=== PATIENT | male | born 1965 | race African-American/Black ===

== ENCOUNTER 2025-05-05 02:37 | Emergency (ER) | payer OTHER, MEDICAID ==
[~2025-05-05] VITALS: Ht 172.7 cm; Wt 79.4 kg
[2025-05-05] MEDS: IPRATROPIUM BROM 0.5 MG/2.5ML INH SOL NEB ONE ×2 (03:29→06:36)
[2025-05-05] MEDS: BUDESONIDE (INHALATION) 0.5 MG/2 ML NEB NEB ONE ×2 (03:29→06:35)
[2025-05-05] MEDS: LEVALBUTEROL HCL 1.25 MG/3 ML NEB NEB ONE ×2 (03:29→06:35)
[2025-05-05] MEDS ORDERED: methylPREDNISolone SOD SUCC 125 MG/2 ML VL IV ONE (03:30)
[2025-05-05] MEDS ORDERED: AZITHROMYCIN 500MG/ 250ML 250 ML IV ONE (03:30)
[2025-05-05 03:44] LABS: Hematocrit 44.8 % (41.0-53.0); Hemoglobin 14.9 g/dL (13.5-17.5); Mean Corpuscular Hemoglobin 28.3 pg (28.0-32.0); Mean Corpuscular Volume 85.5 fL (80.0-100.0); Nucleated Red Blood Cells % 0.0 %
--- NOTE | 2025-05-05 03:50 | ED.PDOC ---
SOB-HPI HPI Comments 59-year-old male with COPD on albuterol inhaler presented to the ER with a chief complaint of shortness of breaths for the past 2 months. Patient reports gradual worsening shortness of breaths for the past couple of months, takes only albuterol inhaler, which did not relieve his shortness of breaths. Associated symptoms include productive cough with clear to white phlegm. Reports wheezing. Denies chest pain/abdominal pain/urinary symptoms. Reports chills but denies fever at this time. Past medical history COPD Home medications: Albuterol Social history: Quit smoking for days ago, smoked for his lifetime-half a pack a day. Drinks socially Patient seen and examined in ER. Bilateral coarse crackles, wheezing heard, respiratory rate Twenty per minute. Chief Complaint: Shortness of Breath Time Seen by MD: 02:45 Reviewed notes: Nurses Notes Information Source: Patient Mode of Arrival: Ambulatory Past Medical History Past Medical History (Other): COPD Constitutional: reports: chills EENTM: denies: blurred vision, double vision, ear bleeding, ear discharge, ear drainage, ear pain, ear ringing, eye pain, eye redness, hearing loss, mouth pain, mouth swelling, nasal discharge, nose bleeding, nose congestion, nose pain, photophobia, tearing, throat pain, throat swelling, voice changes, others Respiratory: reports: cough, orthopnea, SOB at rest, SOB with excertion, wheezing Cardiovascular: denies: chest pain, dizzy spells, diaphoresis, Dyspnea on exertion, edema, irregular heart beat, left arm pain, lightheadedness, palpit ations, PND, syncope, others Gastrointestinal: denies: abdomen distended, abdominal pain, blood streaked b owels, constipated, diarrhea, dysphagia, difficulty swallowing, hematemesis, melena, nausea, poor appetite, poor fluid intake, rectal bleeding, rectal pain, vomiting, others Genitourinary: denies: burning, dysuria, flank pain, frequency, hematuria, incontinence, penile discharge, penile sore, pain, testicle pain, testicle swelling, urgency, others Neurological: denies: dizziness, fainting, headache, left sided numbness, left sided weakness, numbness, paresthesia, pre-existing deficit, right sided numbness, right sided weakness, seizure, speech problems, tingling, tremors, weakness, others Musculoskeletal: denies: back pain, gout, joint pain, joint swelling, muscle pain, muscle stiffness, neck pain, others Integumetry: denies: bruises, change in color, change in hair/nails, dryness, laceration, lesions, lumps, rash, wounds, others Allergic/Immunocompromised: denies: Difficulty Healing, Frequent Infections, Hives, Itching, others Hematologic/Lymphatic: denies: anemia, blood clots, easy bleeding, easy bruisi ng, swollen glands, others Endocrine: denies: excessive hunger, excessive sweating, excessive thirst, exce ssive urination, flushing, intolerance to cold, intolerance to heat, unexplained weight gain, unexplained weight loss, others Psychiatric: denies: anxiety, bipolar disorder, depression, hopeless, panic disorder, schizophrenia, sleepless, suicidal, others Physical Exam General Appearance: Mild Distress HEENT: NOT DONE Neck: NOT DONE Respiratory: Decreased Breath Sounds, Expiration, No Accessory Muscle Use, Respiratory Distress, Wheezing Cardiovascular: No Edema, No Murmur, Regular Rate/Rhythm Breast Exam: Deferred Gastrointestinal: No Organomegaly, Non Tender, No Pulsatile Mass, Normal Bowel Sounds, Soft Genitalia: Deferred Pelvic: Deferred Rectal: Deferred Extremities: No calf tenderness, Normal capillary refill, Normal inspection, Normal range of motion, Non-tender, No pedal edema Neurologic: Alert, NOT DONE Cerebellar Function: NOT DONE Reflexes: NOT DONE Skin: Dry Lymphatic: NOT DONE Was a procedure done? Was a procedure done?: No Differential Dx Differential Diagnosis: Bronchitis, CHF, COPD, Pneumonia, Respiratory Distress, Sinusitis, Pharyngitis, URI X-Ray, Labs, Meds, VS Vital Signs Date Time Temp Pulse Resp B/P (MAP) Pulse Ox O2 Delivery O2 Flow Rate FiO2 05/05/25 03:30 20 99 Nasal Cannula* 2 28 05/05/25 02:44 97.9 97 19 152/103 95 97.9 Lab Test 05/05/25 03:27 Range/Units White Blood Count Pending Red Blood Count Pending Hemoglobin Pending Hematocrit Pending Mean Corpuscular Volume Pending Mean Corpuscular Hemoglobin Pending Mean Corpuscular Hemoglobin Concent Pending Red Cell Distribution Width Pending Platelet Count Pending Mean Platelet Volume Pending Neutrophils (%) (Auto) Pending Lymphocytes (%) (Auto) Pending Monocytes (%) (Auto) Pending Basophils (%) (Auto) Pending Neutrophils # (Auto) Pending Lymphocytes # (Auto) Pending Monocytes # (Auto) Pending Sodium Level Pending Potassium Level Pending Chloride Level Pending Carbon Dioxide Level Pending Anion Gap Pending Blood Urea Nitrogen Pending Creatinine Pending Glomerular Filtration Rate Calc Pending BUN/Creatinine Ratio Pending Serum Glucose Pending Calcium Level Pending Magnesium Level Pending Troponin I High Sensitivity Pending B-Type Natriuretic Peptide Pending Current Medications Medications (Trade) Dose Ordered Sig/Mary Route Start Time Stop Time Status Last Admin Levalbuterol HCl (Xopenex Medneb) 1.25 mg ONCE ONCE NEB 05/05/25 03:15 05/05/25 03:20 DC 05/05/25 03:29 Ipratropium [place] (Atrovent Medneb) 0.5 mg ONCE ONCE NEB 05/05/25 03:15 05/05/25 03:18 DC 05/05/25 03:29 Budesonide (Pulmicort) 0.5 mg ONCE ONCE NEB 05/05/25 03:15 05/05/25 03:18 DC 05/05/25 03:29 X-Ray, Labs, Meds, VS Comment Chest x-ray shows tubular heard and flattened diaphragm consistent with COPD Images Reviewed?: Images reviewed and evaluated by me Time of 1ST Reevaluation: 04:00 Reevaluation 1ST: Improved (Improved shortness of breaths) Consultation: PCP Patient Education/Counseling: Diagnosis, Treatment Family Education/Counseling: Diagnosis, Treatment SEPSIS Sepsis Screen Date sepsis recognized/suspect: May 05, 2025 Time Sepsis recognized/suspect: 024 Recent Procedure: Yes On Antibiotic Therapy: No Respiratory Rate >20: Yes Heart Rate >90: Yes Temp<36 C (96.8 F) or >38.3 C: No SBP <90 or MAP <65 mmHG: No New Acute Mental Status Change: No Is the patient on CPAP, BIPAP,: No Physician Orders Complete Blood Count (05/05/25 03:16) Basic Metabolic Panel (05/05/25 03:16) Chest Xray 1 View (05/05/25 03:16) Electrocardigram (05/05/25 03:16) Troponin-I Hs (05/05/25 03:16) B-Type Natriuretic Peptide (05/05/25 03:16) Magnesium (05/05/25 03:16) Covid19 Antigen Lucie (05/05/25 ) Rapid Influenza A&B (05/05/25 03:16) Mrsa Screen (05/05/25 03:16) Ceftriaxone 1gm/50ml (Rocephin) (05/05/25 03:30) Azithromycin 500mg/ 250ml (Zithromax 50 (05/05/25 03:30) Respiratory Culture W/ Gs (05/05/25 03:43) Vital Signs Date Time Temp Pulse Resp B/P (MAP) Pulse Ox O2 Delivery O2 Flow Rate FiO2 05/05/25 03:30 20 99 Nasal Cannula* 2 28 05/05/25 02:44 97.9 97 19 152/103 95 97.9 Laboratory Tests Test 05/05/25 03:27 White Blood Count Pending Medications Medications Dose Ordered Sig/Mary Route Start Time Stop Time Status Last Admin Dose Admin Budesonide 0.5 mg ONCE ONCE NEB 05/05/25 03:15 05/05/25 03:18 DC 05/05/25 03:29 Ipratropium [place] 0.5 mg ONCE ONCE NEB 05/05/25 03:15 05/05/25 03:18 DC 05/05/25 03:29 Levalbuterol HCl 1.25 mg ONCE ONCE NEB 05/05/25 03:15 05/05/25 03:20 DC 05/05/25 03:29 Departure 1 Departure Time of Disposition: 04:00 Impression: Primary Impression: COPD exacerbation Disposition: ADMITTED INPATIENT Condition: Fair Comments Patient will be admitted to this facility for management of COPD exacerbation, patient will require nebulized treatments with IV methylprednisolone, and IV azithromycin Critical Care Note Critical Care Time?: No Stability Stability form required: No Heart Score Heart Score: Heart Score Response (Comments) Value History Slightly Suspicious 0 EKG N/A 0 Age 45-64 1 Risk Factors 1 or 2 risk factors 1 Troponin N/A 0 Total 2 BEENA SALGADO RESIDENT May 05, 2025 03:50
[2025-05-05 03:56] LABS: Chloride 106 mmol/L (98-107); Potassium 3.7 mmol/L (3.5-5.1); Sodium 143 mmol/L (136-145)
[2025-05-05 03:57] LABS: Anion Gap 8 (5-15); Carbon Dioxide 29 mmol/L (20-31)
[2025-05-05 03:58] LABS: Calcium 9.3 mg/dL (8.7-10.4)
[2025-05-05 04:02] LABS: BUN/Creatinine Ratio 10.6 (10.0-20.0); Blood Urea Nitrogen 10 mg/dL (9-23); Glucose 91 mg/dL (74-106)
[2025-05-05 04:03] LABS: Magnesium 2.0 mg/dL (1.6-2.6)
--- NOTE | 2025-05-05 04:03 | DVH ---
CHEST RADIOGRAPH Indication: sob Technique: Single frontal view of the chest was obtained COMPARISON: XR CHEST 1 VIEW on DOS: 08/14/23 FINDINGS: Lines and Tubes: None Lungs: Clear Pleura: No effusion. No pneumothorax. Cardiomediastinal contours: Unremarkable Bones: Unremarkable IMPRESSION: 1. No acute disease.
[2025-05-05 05:18] LABS: COVID19 ANTIGEN SOFIA FIA NEGATIVE (NEGATIVE)
[2025-05-05 05:27] LABS: Base Excess 0.3 mmol/L (-2.0-3.0)
[2025-05-05] MEDS ORDERED: PRED20TA2 PO (05:42)
[2025-05-05] MEDS ORDERED: AZIT-185 PO (05:42)
[2025-05-05] MEDS ORDERED: FLUT230A2 IN (05:42)
[2025-05-05] MEDS: LEVALBUTEROL HCL 1.25 MG/3 ML NEB ONE (06:42)
[2025-05-05 06:45] VITALS: BP 137/92; PULSE 92; RESP 18; TEMP 98; O2SAT 95
[2025-05-05] MEDS: cefTRIAXone SOD 1,000 MG VL IM ONE (06:54)
[2025-05-05] MEDS: methylPREDNISolone SOD SUCC 125 MG/2 ML VL IM ONE (06:54)
== END 2025-05-05 07:06 | disposition home or self-care (01) ==
LOC: ER 02:37
DX: J44.1 Chronic obstructive pulmonary disease with (acute) exacerbation (principal); Z87.891 Personal history of nicotine dependence; Z79.52 Long term (current) use of systemic steroids; Z79.51 Long term (current) use of inhaled steroids; Z20.822 Contact with and (suspected) exposure to COVID-19
CPT/HCPCS: 36415; 36600; 71045; 80048; 82805; 83735; 83880; 84484; 85025; 87081; 87426; 87804; 94640; 96372; 99284; J0696; J2919